=== PATIENT | female | born 1995 | race American Indian/Alaskan Native ===

== ENCOUNTER 2017-02-11 05:13 | Emergency (ER) | payer SELFPAY ==
--- NOTE | 2017-02-11 08:24 | Emergency Department Report ---
Minor Respiratory - HPI Chief Complaint: Upper Respiratory Infection Stated Complaint: HEADACHE/NASAL CONGESTION/BACK PAIN Time Seen by Provider: 02/11/17 07:50 Duration: 1 month Pain Location: Throat, Nose Severity: mild Minor Respiratory: Yes Rhinorrhea, Yes Sore Throat, Yes Able to Tolerate Fluids , Yes Cough, Yes Fever (subjective), No Ear Pain, No Sick Contacts, No Hemoptysis, No Chest Pain, No Shortness of Breath ED Review of Systems ROS: Stated complaint: HEADACHE/NASAL CONGESTION/BACK PAIN Other details as noted in HPI Patient presents to the ER with a long list of complaints. Complaints are; sore throat, sinus pressure, cough, low back pain, possible UTI, and her piercings may be infected. Patient says this is been going on for over a month she was seen here approximately a month ago for the same never followed up because she didn't feel like being seen again and then decided this morning was the morning to come into the ER to be seen again for all these complaints. Constitutional: chills, fever, malaise Eyes: denies: eye pain, eye discharge, vision change ENT: throat pain Respiratory: cough, shortness of breath, wheezing. denies: SOB with exertion, SOB at rest Cardiovascular: denies: chest pain, palpitations, dyspnea on exertion, orthopnea , edema, syncope, paroxysmal nocturnal dyspnea Gastrointestinal: denies: abdominal pain, nausea, vomiting, diarrhea, constipation, hematemesis, melena, hematochezia Genitourinary: denies: dysuria, frequency, hematuria, discharge, abnormal menses , dyspareunia Musculoskeletal: back pain. denies: joint swelling, arthralgia Skin: denies: rash, lesions Neurological: headache. denies: weakness, numbness, paresthesias, confusion, abnormal gait ED Past Medical Hx - Past Medical History Previous Medical History?: No - Surgical History Past Surgical History?: No - Social History Smoking Status: Current Every Day Smoker Substance Use Type: None - Medications Home Medications: Home Medications Medication Instructions Recorded Confirmed Last Taken Type Ketorolac [Toradol] 10 mg PO Q6H PRN #20 tablet 05/15/16 Unknown Rx Levofloxacin [Levaquin] 750 mg PO QDAY #10 tablet 05/15/16 Unknown Rx Metoclopramide [Reglan] 10 mg PO QID PRN #30 tab 05/15/16 Unknown Rx Polyethylene Glycol 3350 [Miralax 17 gm PO QDAY #30 packet 05/15/16 Unknown Rx 3350] Amoxicillin [Amoxicillin TAB] 875 mg PO BID #20 tablet 02/11/17 Unknown Rx Butalb/Acetamin/Caff 50-325-40 1 tab PO Q8HR PRN #12 tablet 02/11/17 Unknown Rx [Fioricet] Prednisone [predniSONE 10 mg 10 mg PO .TAPER #1 tab.ds.pk 02/11/17 Unknown Rx (6-Day Pack, 21 Tabs)] Minor Respiratory Exam - Exam General: Vital signs noted. No distress. Alert and acting appropriately. Patient eating a chili dog on physical exam. Patient is nontoxic, afebrile, well-hydrated with clear lung sounds and in no apparent distress HEENT: Yes Moist Mucous Membranes, Yes Rhinorrhea, No Pharyngeal Erythema, No Pharyngeal Exudates, No Conjuctival Injection, No Frontal Tenderness, No Maxillary Tenderness Ear: Neither TM Bulge, Neither TM Erythema, Neither EAC Pain, Neither EAC Discharge Neck: Yes Supple, No Adenopathy Lungs: Yes Good Air Exchange, Yes Cough, No Wheezes, No Ronchi, No Stridor, No Labored Respirations, No Retractions, No Use of Accessory Muscles, No Other Abnormal Lung Sounds Skin: No Rash, No Edema Neurologic: Alert and oriented, no deficits. Musculoskeletal: Unremarkable. ED Course Vital Signs 02/11/17 06:32 Temperature 98.2 F Pulse Rate 86 Respiratory 14 Rate Blood Pressure 102/67 Blood Pressure 102/67 [Left] O2 Sat by Pulse 100 Oximetry Critical care attestation.: If time is entered above; I have spent that time in minutes in the direct care of this critically ill patient, excluding procedure time. ED Disposition Clinical Impression: URI (upper respiratory infection) Disposition: DISCHARGED TO HOME OR SELFCARE Is pt being admited?: No Condition: Stable Instructions: Upper Respiratory Infection (ED) Prescriptions: Amoxicillin [Amoxicillin TAB] 875 mg PO BID #20 tablet Butalb/Acetamin/Caff 50-325-40 [Fioricet] 1 tab PO Q8HR PRN #12 tablet PRN Reason: Headache Prednisone [predniSONE 10 mg (6-Day Pack, 21 Tabs)] 10 mg PO .TAPER #1 tab.ds.pk Referrals: PRIMARY CARE, [Primary Care Provider] - 3-5 Days ISMA BLANCA MD [Staff Physician] - 3-5 Days Forms: Work/School Release Form(ED)
[2017-02-11 09:02] LABS: Bilirubin,Urine NEG (Negative); Blood,Urine NEG (Negative); Ketones,Urine NEG (Negative); Leukocyte Esterase,Urine NEG (Negative); Mucus,Urine 3+ /HPF; Nitrite,Urine NEG (Negative); Protein,Urine <15 mg/dL mg/dL (Negative); Urobilinogen,Urine < 2.0 mg/dL (<2.0)
--- NOTE | 2017-02-11 10:02 | XRay Report ---
Chest 2 views: History: Cough. Findings: Normal cardiomediastinal silhouette. Trachea is midline. No consolidation, pneumothorax or pleural effusion. Impression: No acute cardiopulmonary findings.
[2017-02-11 10:17] VITALS: BP 106/70
== END 2017-02-11 10:16 | disposition home or self-care (01) ==
LOC: ED 05:13
DX: J06.9 Acute upper respiratory infection, unspecified (principal); F17.200 Nicotine dependence, unspecified, uncomplicated
CPT/HCPCS: 36415; 71020; 81001; 84702; 99284

== ENCOUNTER 2017-06-26 12:29 | Emergency (ER) | payer SELFPAY ==
--- NOTE | 2017-06-26 12:38 | Emergency Department Report ---
Stated Complaint: BACK PAIN Time Seen by Provider: 06/26/17 12:35 - HPI History of Present Illness: PT c/o dysuria x 2 days - ROS Review of Systems: + vomiting twice + back pain + hematuria - Exam Physical Exam: pt looks well, non toxic. no cva tenderness leonard MSE screening note: Focused history and physical exam performed. Due to findings the following was ordered: labs ED Disposition for MSE Condition: Stable
[2017-06-26 13:22] LABS: Basophils % (Auto) 0.5 % (0.0-1.8); Eosinophils % (Auto) 1.5 % (0.0-4.3); Hematocrit 42.6 % (30.3-42.9); Mean Corpuscular HGB Conc 33 % (30-34); Mean Corpuscular Hemoglobin 28 pg (28-32); Mean Corpuscular Volume 84 fl (79-97); Platelet Count 210 K/mm3 (140-440); Red Blood Count 5.08 M/mm3 (3.65-5.03); Red Cell Distribution Width 14.9 % (13.2-15.2); White Blood Count 7.5 K/mm3 (4.5-11.0)
[2017-06-26 13:39] LABS: Bilirubin,Urine NEG (Negative); Blood,Urine LG (Negative); Ketones,Urine NEG (Negative); Leukocyte Esterase,Urine LG (Negative); Mucus,Urine 1+ /HPF; Nitrite,Urine NEG (Negative)
[2017-06-26 13:40] LABS: RBC,Urine > 182.0 /HPF (0.0-6.0); WBC,Urine > 182.0 /HPF (0.0-6.0)
[2017-06-26 13:41] LABS: Alanine Aminotransferase 9 units/L (7-56); Albumin 4.4 g/dL (3.9-5); Albumin/Globulin Ratio 1.6 %; Alkaline Phosphatase 70 units/L (35-129); Anion Gap 16 mmol/L; BUN/Creatinine Ratio 17; Blood Urea Nitrogen 12 mg/dL (7-17); Carbon Dioxide 26 mmol/L (22-30); Chloride 101.6 mmol/L (98-107); Glucose 91 mg/dL (65-100); Potassium 5.1 mmol/L (3.6-5.0); Sodium 138 mmol/L (137-145); Total Protein 7.1 g/dL (6.3-8.2)
--- NOTE | 2017-06-26 14:06 | Emergency Department Report ---
ED General Adult HPI - General Chief complaint: Urogenital-Female Stated complaint: BACK PAIN Time Seen by Provider: 06/26/17 12:35 Source: patient Mode of arrival: Ambulatory Limitations: No Limitations - History of Present Illness Initial comments: PT states she has had dysuria and hematuria. PT states she has had the symptoms x 2 days. PT states she vomited yesterday. PT states the one bathroom at work is broken and she has had to walk to a neighboring building to use the restroom. PT states because of this bathroom situation, pt states she has been holding her urine. Complaint: UTI -: Gradual, days(s) (2) Location: back (low back ) Radiation: non-radiation Severity scale (0 -10): 7 Quality: burning (with urination ), aching Consistency: constant Improves with: none Worsens with: other (urination ) Associated Symptoms: nausea/vomiting (yesterday, none today, she is currently drinking juice ). denies: fever/chills, loss of appetite, malaise Treatments Prior to Arrival: none - Related Data Previous Rx's Medication Instructions Recorded Last Taken Type Butalb/Acetamin/Caff 50-325-40 1 tab PO Q8HR PRN #12 tablet 02/11/17 Unknown Rx [Fioricet] Ibuprofen [Motrin] 600 mg PO Q8H PRN #15 tablet 06/26/17 Unknown Rx Levofloxacin [Levaquin] 750 mg PO QDAY #5 tablet 06/26/17 Unknown Rx Promethazine [Phenergan TAB] 12.5 mg PO Q8HR PRN #10 tab 06/26/17 Unknown Rx Allergies Allergy/AdvReac Type Severity Reaction Status Date / Time peanut AdvReac Hives Verified 05/15/16 12:25 tomato AdvReac Hives Verified 05/15/16 12:25 ED Review of Systems ROS: Stated complaint: BACK PAIN Other details as noted in HPI Comment: All other systems reviewed and negative Constitutional: denies: fever, malaise Respiratory: denies: cough Gastrointestinal: abdominal pain (suprapubic ), nausea, vomiting Genitourinary: dysuria, frequency, hematuria (started today ). denies: discharge, abnormal menses Musculoskeletal: back pain ED Past Medical Hx - Past Medical History Previous Medical History?: No - Surgical History Past Surgical History?: No - Social History Smoking Status: Never Smoker Substance Use Type: Alcohol - Medications Home Medications: Home Medications Medication Instructions Recorded Confirmed Last Taken Type Butalb/Acetamin/Caff 50-325-40 1 tab PO Q8HR PRN #12 tablet 02/11/17 Unknown Rx [Fioricet] Ibuprofen [Motrin] 600 mg PO Q8H PRN #15 tablet 06/26/17 Unknown Rx Levofloxacin [Levaquin] 750 mg PO QDAY #5 tablet 06/26/17 Unknown Rx Promethazine [Phenergan TAB] 12.5 mg PO Q8HR PRN #10 tab 06/26/17 Unknown Rx ED Physical Exam - General Limitations: No Limitations General appearance: alert, in no apparent distress - Head Head exam: Present: atraumatic, normocephalic, normal inspection - Eye Eye exam: Present: normal appearance, PERRL, EOMI. Absent: conjunctival injection, nystagmus - ENT ENT exam: Present: normal exam, mucous membranes moist, normal external ear exam - Neck Neck exam: Present: normal inspection, full ROM - Respiratory Respiratory exam: Present: normal lung sounds bilaterally. Absent: respiratory distress, chest wall tenderness - Cardiovascular Cardiovascular Exam: Present: regular rate, normal rhythm, normal heart sounds - GI/Abdominal GI/Abdominal exam: Present: soft, tenderness (mild suprapubic tenderness to deep palpation, mild llq ttp ), normal bowel sounds. Absent: guarding, rebound , rigid - Extremities Exam Extremities exam: Present: normal inspection, full ROM, normal capillary refill - Back Exam Back exam: Present: normal inspection, full ROM. Absent: tenderness, CVA tenderness (R), CVA tenderness (L), muscle spasm, paraspinal tenderness, vertebral tenderness - Neurological Exam Neurological exam: Present: alert, oriented X3, normal gait - Psychiatric Psychiatric exam: Present: normal affect, normal mood - Skin Skin exam: Present: warm, dry, intact ED Course Vital Signs 06/26/17 06/26/17 12:36 14:36 Temperature 99.3 F 98.1 F Pulse Rate 88 84 Respiratory 16 18 Rate Blood Pressure 123/65 Blood Pressure 127/77 [Right] O2 Sat by Pulse 99 99 Oximetry - Reevaluation(s) Reevaluation #1: 06/26/17 14:08 PT aware of lab results and dx. PT offered IVFs and IV antibiotics. PT refused. PT states she want to go home. PT has been tolerating po fluids while in ED. PT aware of the need for close follow up. PT verbalizes understanding. 06/26/17 14:21 reviewed previous visits, previous UTI was due to E. Coli, no resistance on that culture. Cultured urine today. - Pulse Oximetry Interpretation Digit-Finger Initial Pulse Oximetry Readin Actions Taken: none ED Medical Decision Making - Lab Data Result diagrams: 06/26/17 13:02 06/26/17 13:02 Labs 06/26/17 06/26/17 06/26/17 13:02 13:02 13:02 WBC 7.5 RBC 5.08 H Hgb 14.0 Hct 42.6 MCV 84 MCH 28 MCHC 33 RDW 14.9 Plt Count 210 Lymph % (Auto) 23.3 [place] % (Auto) 8.4 H Eos % (Auto) 1.5 Baso % (Auto) 0.5 Lymph # 1.7 [place] # 0.6 Eos # 0.1 Baso # 0.0 Seg Neutrophils % 66.3 Seg Neutrophils # 5.0 Sodium 138 Potassium 5.1 H Chloride 101.6 Carbon Dioxide 26 Anion Gap 16 BUN 12 Creatinine 0.7 Estimated GFR > 60 BUN/Creatinine Ratio 17 Glucose 91 Calcium 10.0 Total Bilirubin 0.60 AST 17 ALT 9 Alkaline Phosphatase 70 Total Protein 7.1 Albumin 4.4 Albumin/Globulin Ratio 1.6 HCG, Qual Negative Urine Color Urine Turbidity Urine pH Ur Specific [place] Urine Protein Urine Glucose (UA) Urine Ketones Urine Blood Urine Nitrite Urine Bilirubin Urine Urobilinogen Ur Leukocyte Esterase Urine WBC (Auto) Urine RBC (Auto) U Epithel Cells (Auto) Urine WBC Clumps Urine Mucus 06/26/17 13:13 WBC RBC Hgb Hct MCV MCH MCHC RDW Plt Count Lymph % (Auto) [place] % (Auto) Eos % (Auto) Baso % (Auto) Lymph # [place] # Eos # Baso # Seg Neutrophils % Seg Neutrophils # Sodium Potassium Chloride Carbon Dioxide Anion Gap BUN Creatinine Estimated GFR BUN/Creatinine Ratio Glucose Calcium Total Bilirubin AST ALT Alkaline Phosphatase Total Protein Albumin Albumin/Globulin Ratio HCG, Qual Urine Color Yellow Urine Turbidity Clear Urine pH 6.0 Ur Specific [place] 1.021 Urine Protein 30 mg/dl Urine Glucose (UA) Neg Urine Ketones Neg Urine Blood Lg Urine Nitrite Neg Urine Bilirubin Neg Urine Urobilinogen 2.0 Ur Leukocyte Esterase Lg Urine WBC (Auto) > 182.0 H Urine RBC (Auto) > 182.0 U Epithel Cells (Auto) 4.0 Urine WBC Clumps 3+ Urine Mucus 1+ - Differential Diagnosis UTI, renal colic, Critical Care Time: No Critical care attestation.: If time is entered above; I have spent that time in minutes in the direct care of this critically ill patient, excluding procedure time. ED Disposition Clinical Impression: Nausea UTI (urinary tract infection) Qualifiers: Urinary tract infection type: site unspecified Hematuria presence: with hematuria Qualified Code(s): N39.0 - Urinary tract infection, site not specified Low back pain Qualifiers: Chronicity: acute Back pain laterality: bilateral Sciatica presence: without sciatica Qualified Code(s): M54.5 - Low back pain Disposition: TO HOME OR SELFCARE Is pt being admited?: No Does the pt Need Aspirin: No Condition: Stable Instructions: Urinary Tract Infection in Women (ED), Acute Pyelonephritis (ED) Additional Instructions: Increase fluids You can take OTC AZO for the burning when you pee. Only take this for [address] or drink alcohol after taking Phenergan Follow up in 2 days with ED or PCP Return to the ED if you start having upper back pain, fevers, chills, or vomiting. Do not hold your urine Finish all antibiotics, unless someone from the hospital call you and tells you otherwise Prescriptions: Ibuprofen [Motrin] 600 mg PO Q8H PRN #15 tablet PRN Reason: Pain Levofloxacin [Levaquin] 750 mg PO QDAY #5 tablet Promethazine [Phenergan TAB] 12.5 mg PO Q8HR PRN #10 tab PRN Reason: Nausea Referrals: PRIMARY CARE, [Primary Care Provider] - 3-5 Days ERIN BRIGGS MD [Staff Physician] - 3-5 Days [facility] [Outside] - 3-5 Days Forms: Work/School Release Form(ED) Time of Disposition: 14:11
[2017-06-26 14:37] VITALS: BP 127/77
== END 2017-06-26 14:37 | disposition home or self-care (01) ==
LOC: ED 12:29
DX: N39.0 Urinary tract infection, site not specified (principal); Z91.010 Allergy to peanuts; Z91.018 Allergy to other foods
CPT/HCPCS: 36415; 80053; 81001; 84703; 85025; 87086; 99283